=== PATIENT | female | born 1975 | race Caucasian/White ===

== ENCOUNTER → 2017-05-23 10:26 | Outpatient (CLI) | payer BC, SELFPAY ==
[2017-05-25 11:37] LABS: HPV Reflexed? NOT INDICATED
== END ==
PROVIDERS: Visit Provider Obstetrics & Gynecology
DX: Z12.4 Encounter for screening for malignant neoplasm of cervix (principal)
CPT/HCPCS: 88175; G0145

== ENCOUNTER → 2017-05-23 10:41 | Outpatient (CLI) | payer BC, SELFPAY ==
--- NOTE | 2017-05-23 10:47 | HPBI_ITS ---
MAMMOGRAPHY - BILATERAL SCREENING REASON FOR EXAM: Female, 42 years old. Routine annual screening examination. PERTINENT HISTORY: Aunt with breast cancer. TECHNIQUE: Digital bilateral breast marry (3D mammographic acquisition) in the CC and MLO projections. 2-D mediolateral oblique (MLO) and craniocaudad (CC) views of both breasts were obtained. CAD: Full Field Digital Mammography with Computer Added Detection was performed. COMPARISON: None. Baseline examination. FINDINGS: Breast Composition: The breasts are heterogeneously dense, which may obscure small masses. There are no dominant masses or suspicious calcifications. No other significant abnormalities are identified. HPBI/SCREENING MAMM (CAD), BILAT IMPRESSION: Negative screening mammogram. Yearly followup mammogram recommended. (A) ASSESSMENT CATEGORY: BIRADS Category 1: Negative. A letter regarding these results will be sent to the patient by the facility within 30 days. Approximately 10% of breast cancers are not detected by mammography. A normal mammogram should not delay biopsy of a clinically suspicious abnormality. [id number] Electronically Signed: Karlos Mora MD at 8:15 EDT Tel [phone], Service support ,
== END ==
PROVIDERS: Family Provider Family Medicine; PCP Family Medicine; Visit Provider Obstetrics & Gynecology
DX: Z01.419 Encounter for gynecological examination (general) (routine) without abnormal findings (principal); Z12.31 Encounter for screening mammogram for malignant neoplasm of breast
CPT/HCPCS: 77063; 77067

== ENCOUNTER → 2017-08-05 11:31 | Outpatient (CLI) | payer BC, SELFPAY ==
--- NOTE | 2017-08-05 11:39 | RAD_ITS ---
STUDY: X-RAY CHEST REASON FOR EXAM: Female, 42 years old. Chronic cough TECHNIQUE: PA and lateral views of the chest. COMPARISON: 02/25/2014 FINDINGS: The lungs are clear and expanded. There is no demonstrated pleural abnormality. Normal size heart. Normal mediastinum and yessica. Normal visualized pulmonary arteries. Normal visualized aortic arch and descending thoracic aorta. Normal visualized thoracic spine. Normal visualized ribs, clavicles, and shoulders. Cholecystectomy clips are identified. RAD/Chest PA and Lateral IMPRESSION: No airspace consolidation or pleural effusion. Stable exam. Electronically Signed: Se Hwang MD at 8:12 EDT , Service support ,
== END ==
PROVIDERS: Family Provider Family Medicine; PCP Family Medicine; Visit Provider Family Medicine
DX: R05 Cough (principal)
CPT/HCPCS: 71046

== ENCOUNTER → 2017-11-04 10:09 | Outpatient (CLI) | payer BC, SELFPAY ==
[2017-11-04 12:31] LABS: Anion Gap 10 (5-15); BUN 13 mg/dL (7-18); BUN/Creat Ratio 14.3 RATIO (10-20); Chloride 105 mmol/L (98-107); Cholesterol 165 mg/dL (200); Creatinine, Serum 0.91 mg/dL (0.55-1.02); EST Glomerular Filtration Rate 72 mL/min (>60); Est Glom Filt Rate - Afr Amer 87 mL/min (>60); Glucose 93 mg/dL (74-106); High Density Lipoprotein 44 mg/dL; Potassium 4.4 mmol/L (3.5-5.1); Sodium Level 136 mmol/L (136-145); Triglycerides 145 mg/dL; Very Low Density Lipoprotein 29 mg/dL (5-40)
[2017-11-04 12:38] LABS: Vitamin D,25 Hydroxy 18.4 ng/mL (29.95-100.01)
== END ==
PROVIDERS: Family Provider Family Medicine; PCP Family Medicine; Visit Provider Family Medicine
DX: E55.9 Vitamin D deficiency, unspecified (principal); I10 Essential (primary) hypertension
CPT/HCPCS: 36415; 80048; 80061; 82306

== ENCOUNTER → 2018-01-11 14:32 | Outpatient (CLI) | payer BC, SELFPAY ==
--- NOTE | 2018-01-11 14:36 | RAD_ITS ---
STUDY: X-RAY - RIGHT FOOT CLINICAL: Female, 42 years old. Kicked sweeper bruising area of the third and fourth metatarsal phalangeal joints. TECHNIQUE: 3 view(s) of the foot. COMPARISON: None. FINDINGS: There is a plantar calcaneal spur. Normal talus and tarsal bones. Normal visualized subtalar, talonavicular, calcaneocuboid, tarsal and tarsometatarsal articulations. Normal metatarsi. Normal metatarsophalangeal joint of the great toe. Normal tibial and fibular sesamoid bones. Normal interphalangeal joint of the great toe. Normal phalanges of the great toe. Normal second through fifth metatarsophalangeal joints. There is a nondisplaced oblique fracture through the shaft of the fourth proximal phalanx. Otherwise normal interphalangeal joints and phalanges of the lesser toes. The soft tissue structures are unremarkable. RAD/Foot min 3 Views IMPRESSION: 1. Nondisplaced fracture of the fourth proximal phalanx. 2. Plantar spur. Electronically Signed: Zachary Reid DO at 23:37 EST Tel [phone], Service support ,
== END ==
PROVIDERS: Family Provider Family Medicine; PCP Family Medicine; Referring Provider Family Medicine; Visit Provider Family Medicine
DX: M79.671 Pain in right foot (principal)
CPT/HCPCS: 73630

== ENCOUNTER → 2018-04-10 10:54 | Outpatient (CLI) | payer BC, SELFPAY ==
[2018-04-10 12:49] LABS: AST(SGOT) 15 U/L (15-37); Alanine Aminotransfer ALT/SGPT 16 U/L (13-56); Albumin, Serum 3.9 g/dL (3.2-5.0); Alkaline Phosphatase 71 U/L (45-117); Anion Gap 12 (5-15); BUN 13 mg/dL (7-18); BUN/Creat Ratio 14.9 RATIO (10-20); Calcium,Total 9.1 mg/dL (8.5-10.1); Chloride 103 mmol/L (98-107); Creatinine, Serum 0.87 mg/dL (0.55-1.02); EST Glomerular Filtration Rate 75 mL/min (>60); Est Glom Filt Rate - Afr Amer 91 mL/min (>60); Globulin 3.8 g/dL (2.2-4.2); Glucose 95 mg/dL (74-106); Potassium 4.8 mmol/L (3.5-5.1); Protein, Total 7.7 g/dL (6.4-8.2); Sodium Level 141 mmol/L (136-145)
== END ==
PROVIDERS: Family Provider Family Medicine; PCP Family Medicine; Visit Provider Family Medicine
DX: B35.1 Tinea unguium (principal)
CPT/HCPCS: 36415; 80053

== ENCOUNTER → 2018-08-21 | Outpatient (CLI) | payer BC, SELFPAY ==
[2018-08-21 17:37] LABS: Absolute Lymphocyte Count 2.84 X10^3/ul (0.83-4.51); Absolute Neutrophil Count 6.7 X10^3/uL (2.0-7.7); Basophil# 0.04 X10^3/uL; Basophil% 0.4 % (0-1); Eosinophils% 1.9 % (0-5); Hematocrit 39.6 % (37-47); Hemoglobin 12.8 g/dl (12.0-15.0); Lymphocyte # 2.84 X10^3/ul (4.0); Lymphocyte % 26.5 % (19-41); Mean Corp Hgb Conc 32.3 g/gl (32-36); Mean Corpuscular Volume 80.5 fL (81-99); Mean Platelet Vol. 10.8 fl (6.2-12.0); Monocyte# 0.89 X10^3/uL; Monocyte% 8.3 % (0-10); Neutrophil % 62.5 % (47-70); Platelet Count 438 K/mm3 (150-450); RBC Distribution Width CV 16.9 % (11.6-14.6); RBC Distribution Width SD 49.1 fl (35.1-43.9); Red Blood Count 4.92 M/mm3 (4.2-5.4); White Blood Count 10.7 K/mm3 (4.4-11.0)
[2018-08-21 17:58] LABS: POSITIVE COUNT NO; POSITIVE DIFFERENTIAL NO; POSITIVE MORPHOLOGY NO
[2018-08-21 18:15] LABS: Anion Gap 10 (5-15); BUN 10 mg/dL (7-18); BUN/Creat Ratio 11.6 RATIO (10-20); Calcium,Total 9.1 mg/dL (8.5-10.1); Chloride 104 mmol/L (98-107); Creatinine, Serum 0.86 mg/dL (0.55-1.02); EST Glomerular Filtration Rate 76 mL/min (>60); Est Glom Filt Rate - Afr Amer 92 mL/min (>60); Glucose 78 mg/dL (74-106); Potassium 4.4 mmol/L (3.5-5.1); Sodium Level 138 mmol/L (136-145)
== END | disposition home or self-care (01) ==
LOC: MFPLAB 15:49
PROVIDERS: Family Provider Family Medicine; PCP Family Medicine; Referring Provider Family Medicine; Visit Provider Family Medicine
DX: R07.9 Chest pain, unspecified (principal)
CPT/HCPCS: 36415; 80048; 84484; 85025

== ENCOUNTER → 2018-10-02 | Outpatient (CLI) | payer BC, SELFPAY ==
--- NOTE | 2018-10-02 17:33 | RAD_ITS ---
STUDY: X-RAY - ABDOMEN/PELVIS REASON FOR EXAM: Female, 43 years old. Right-sided abdominal pain. TECHNIQUE: Two AP supine views of the abdomen and pelvis. COMPARISON: None. FINDINGS: Normal visualized lung bases. There is an unremarkable bowel gas pattern. There is no demonstrated free abdominal air. The patient is status post cholecystectomy. Normal soft tissue structures. Normal visualized osseous structures. RAD/Abd Inc Decub and/or Erect IMPRESSION: Normal x-ray examination of the abdomen and pelvis. Electronically Signed: Karlos Mora, at 15:35 EDT , Service support ,
[2018-10-02 17:58] LABS: Hematocrit 38.9 % (37-47); Hemoglobin 12.3 g/dL (12.0-15.0); Mean Corp Hgb Conc 31.6 g/dL (32-36); Mean Corpuscular Hgb 26.4 pg (27.0-32.0); Mean Corpuscular Volume 83.5 fL (81-99); Mean Platelet Vol. 10.6 fl (6.2-12.0); Platelet Count 421 K/mm3 (150-450); RBC Distribution Width CV 16.1 % (11.6-14.6); RBC Distribution Width SD 48.8 fl (35.1-43.9); Red Blood Count 4.66 M/mm3 (4.2-5.4); White Blood Count 8.6 K/mm3 (4.4-11.0)
[2018-10-02 18:12] LABS: ALB/GLOB Ratio 0.9 RATIO (0.9-2.4); AST(SGOT) 25 U/L (15-37); Alanine Aminotransfer ALT/SGPT 21 U/L (13-56); Albumin, Serum 3.5 g/dL (3.2-5.0); Alkaline Phosphatase 84 U/L (45-117); Anion Gap 10 (5-15); BUN 9 mg/dL (7-18); BUN/Creat Ratio 9.7 RATIO (10-20); Calcium,Total 9.1 mg/dL (8.5-10.1); Chloride 107 mmol/L (98-107); Creatinine, Serum 0.92 mg/dL (0.55-1.02); EST Glomerular Filtration Rate 70 mL/min (>60); Est Glom Filt Rate - Afr Amer 85 mL/min (>60); Globulin 4.1 g/dL (2.2-4.2); Glucose 100 mg/dL (74-106); Potassium 4.2 mmol/L (3.5-5.1); Protein, Total 7.6 g/dL (6.4-8.2); Sodium Level 142 mmol/L (136-145)
== END | disposition home or self-care (01) ==
LOC: LAB 17:23 → RAD 17:24
PROVIDERS: Family Provider Family Medicine; PCP Family Medicine; Referring Provider Family Medicine; Visit Provider Family Medicine
DX: R10.9 Unspecified abdominal pain (principal)
CPT/HCPCS: 74019; 80053; 85027

== ENCOUNTER → 2018-10-04 | Outpatient (CLI) | payer BC, SELFPAY ==
--- NOTE | 2018-10-04 11:27 | CT_ITS ---
STUDY: CT ABDOMEN AND PELVIS WITHOUT CONTRAST REASON FOR EXAM: Female, 43 years old. Right lower quadrant and lower back pain since Tuesday. RADIATION DOSAGE (If Supplied By Facility): CTDIvol = ( 20.50 ) mGy, DLP = ( 2214.17 ) mGycm TECHNIQUE: Transaxial images were obtained from the dome of the diaphragm to the symphysis pubis without oral contrast, and without intravenous contrast. Sagittal and coronal images were reconstructed. Individualized dose optimization techniques were used for this CT. COMPARISON: Comparison is made with prior study dated September 24, 2014. FINDINGS: The visualized lung bases are unremarkable. The visualized portions of the heart are within normal limits. There is decreased attenuation of the liver consistent with steatosis. There are surgical clips in the gallbladder fossa consistent with a prior cholecystectomy. Normal spleen. Normal pancreas. Normal bilateral adrenal glands. Normal right kidney. Since prior study, this appearance of a 2.5 cm x 3.5 cm hypodense mass in the lateral aspect of the left kidney. This not a simple cyst as measured by Hounsfield units. Correlation with ultrasound is recommended. Normal visualized stomach. Normal small intestine. Normal colon. The appendix is visualized and appears normal. Normal abdominal aorta. Normal inferior vena cava. There is borderline retroperitoneal lymphadenopathy with enlarged nodes no greater than 10mm in the short axis diameter. Normal urinary bladder. Follicles are seen in both ovaries. Normal abdominal wall. Normal osseous structures. CT/Abdomen/Pelvis W IV Cont ONLY IMPRESSION: Fatty infiltration of the liver. 2.5 cm x 3.5 cm hypodense mass in the lateral aspect of the left kidney as described. Correlation with ultrasound is recommended to rule out a noncystic abnormality. Electronically Signed: Karlos Mora, at 13:21 EDT , Service support ,
== END | disposition home or self-care (01) ==
LOC: CT 11:09
PROVIDERS: Family Provider Family Medicine; PCP Family Medicine; Referring Provider Family Medicine; Visit Provider Family Medicine
DX: R10.9 Unspecified abdominal pain (principal)
CPT/HCPCS: 74177; Q9967

== ENCOUNTER → 2018-10-04 | Outpatient (CLI) | payer BC, SELFPAY ==
--- NOTE | 2018-10-04 16:20 | US_ITS ---
STUDY: RENAL ULTRASOUND - COMPLETE REASON FOR EXAM: Female, 43 years old. Left renal cyst. TECHNIQUE: Ultrasound evaluation of the kidneys was performed with real-time and static terry-scale imaging. COMPARISON: CT abdomen and pelvis 1140 hours. FINDINGS: RIGHT KIDNEY: Normal location of the right kidney, which is normal in size. The right kidney measures 10.4 x 4.9 x 5.1 cm. There is a normal cortex of the right kidney. The renal cortex measures 1.6 cm. There is no right renal mass or cyst. There are no right renal calculi. There is no right hydronephrosis. DISTAL RIGHT URETER: There is non-visualization of the distal right ureter. There is no demonstrated right ureterovesical junction calculus. There is a visualized right ureteral jet. LEFT KIDNEY: Normal location of the left kidney, which is normal in size. The left kidney measures 11.6 x 5.4 x 6.9 cm. There is a normal cortex of the left kidney. The renal cortex measures 1.3 cm. A 3.3 x 3.0 x 3.9 cm exophytic solid appearing mass is seen at the midpole, correlating to the hypodense lesion on CT. There are no left renal calculi. There is no left hydronephrosis. DISTAL LEFT URETER: There is non-visualization of the distal left ureter. There is no demonstrated left ureterovesical junction calculus. There is a visualized left ureteral jet. BLADDER: The distended urinary bladder has a volume of 326 ml. There is a 3 mm normal wall thickness of the distended urinary bladder. There is no demonstrated mass within the urinary bladder. There are no demonstrated bladder calculi. US/Kidney and Bladder IMPRESSION: 3.9 cm solid-appearing mass at the lateral midpole of the left kidney, correlating to the hypodense lesion seen on CT. This must be regarded with suspicion for malignancy until proven otherwise. No hydronephrosis. Electronically Signed: Brian Vaz MD at 19:25 EDT , Service support ,
== END | disposition home or self-care (01) ==
LOC: US 16:11
PROVIDERS: Family Provider Family Medicine; PCP Family Medicine; Referring Provider Family Medicine; Visit Provider Family Medicine
DX: N28.1 Cyst of kidney, acquired (principal)
CPT/HCPCS: 76770

== ENCOUNTER 2018-11-03 10:53 | Observation (INO) | payer BC, SELFPAY ==
[2018-10-23 10:42] VITALS: BP 134/84; PULSE 60; RESP 18; TEMP 37.3; O2SAT 97; BMI 39.9
--- NOTE | 2018-10-23 11:24 | RAD_ITS ---
STUDY: X-RAY CHEST REASON FOR EXAM: Female, 43 years old. Pre-op TECHNIQUE: PA and lateral views of the chest. COMPARISON: 08/05/2017 FINDINGS: The lungs are clear and expanded. There is no demonstrated pleural abnormality. Normal size heart. Normal mediastinum and yessica. Normal visualized pulmonary arteries. Normal visualized aortic arch and descending thoracic aorta. Normal visualized thoracic spine. Normal visualized ribs, clavicles, and shoulders. There is right upper quadrant surgical clips. RAD/Chest PA and Lateral IMPRESSION: Normal x-ray examination of the chest. Electronically Signed: Milana Zafar, at 12:28 EDT Tel , Service support ,
[2018-10-23 11:30] LABS: Hematocrit 36.6 % (37-47); Hemoglobin 11.5 g/dL (12.0-15.0); Mean Corp Hgb Conc 31.4 g/dL (32-36); Mean Corpuscular Hgb 26.1 pg (27.0-32.0); Mean Platelet Vol. 10.1 fl (6.2-12.0); Platelet Count 394 K/mm3 (150-450); RBC Distribution Width CV 16.4 % (11.6-14.6); RBC Distribution Width SD 49.6 fl (35.1-43.9); Red Blood Count 4.41 M/mm3 (4.2-5.4); White Blood Count 8.7 K/mm3 (4.4-11.0)
[2018-10-23 12:00] LABS: Anion Gap 6 (5-15); BUN 12 mg/dL (7-18); BUN/Creat Ratio 13.3 RATIO (10-20); Calcium,Total 8.2 mg/dL (8.5-10.1); Chloride 109 mmol/L (98-107); EST Glomerular Filtration Rate 72 mL/min (>60); Est Glom Filt Rate - Afr Amer 87 mL/min (>60); Estimated Creatinine Clearance 68.88 ml/min; Glucose 110 mg/dL (74-106); Potassium 4.1 mmol/L (3.5-5.1); Sodium Level 140 mmol/L (136-145)
[2018-11-03] VITALS (12 sets, daily range): BP systolic 112–157; BP diastolic 57–90; PULSE 54–78; RESP 14–16; TEMP 36.1–37.1; O2SAT 91–98; BMI 39.9
--- NOTE | 2018-11-03 | IMM_PTH ---
PATIENT: LAMAR KANG LOC: MS3 U#:[id number] AGE/SX: 43/F ROOM: MS313 RE11/03/[address]: Dr. Harshal Fofana MD : 1975 BED: 1 DIS: 11/04/2018 SPEC #: [id number] RECD: 11/08/18 12:33 STATUS: SOUBharath REQ #: [id number] KRISTY: 11/03/18 00:[address]: Harshal Fofana DEPT: IMMUNOHISTOCHEMISTRY RECD BY: Vanessa Garland ENTERED: 11/08/18 12:45 SP TYPE: IMMUNO OTHR DR: Dr. Maurilio Meyers MD Tissues: Kidney, NOS Procedures: RCC (add) CD10 (add) CK19 (add) CK7 (add) CK8 (add) PERCY (add) Vimentin (add) 34BE12 (add) FACTOR VIII (add) Pankeratin (initial) PHYSICIAN & [address] [address] SPECIMEN INFORMATION: Tissue Source: Left renal mass Clinical Info: Neoplasm of left kidney Specimen Number: [id number] #2 CPT code: 44711, 19292 x9 METHODOLOGY: Deparaffinized sections of prefer/formalin-fixed tissue or PAP/DQ stained slides are incubated with monoclonal/polyclonal antibodies/oligonucleotide probes. Localization is made via biotin free immunoperoxidase method. Appropriate controls are performed and reacted as expected. Results on target cell population are indicated in the following table: RESULTS: ANTIBODY / CLONE RESULT Block 2 AE1-3 (AE1/AE3/PCK26) positive CK7 (OV-TL12/30) positive CK8 (41otzpE72) positive CD10 (56C6) positive, focal 34BE12 (34BE12) positive, focal Vimentin (V9) positive CK19 (A53-B/A2.26) positive PERCY (E29) negative PAX8 (MQR-50) positive RCC (PN-15) positive These tests were developed and their performance characteristics determined by [facility]. They may not have been cleared or approved by the U.S. Food and Drug Administration. The FDA has determined that such clearance or approval is not necessary. INTERPRETATION: Left kidney, partial nephrectomy: Papillary renal cell carcinoma. Case has been reviewed in consultation with Dr. Diane who concurs with the above diagnosis. IDC:ABBI AM:nelli 11/09/18
[2018-11-03 09:14] LABS: Internal QC Validated? YES +Cl - CLEAR BKGD; Pregnancy, Urine Negative Negative
[2018-11-03] MEDS: Lactated Ringers 1,000 ML 60 ML IV (09:44)
[2018-11-03] MEDS: Lactated Ringers 1,000 ML 100 ML IV (09:55)
--- NOTE | 2018-11-03 10:51 | DCINST_ITS ---
Discharge Diet: Light diet - advance as tolerated Discharge Activity: May Not Drive, May not drive while taking narcotic pain medications., May Shower Call your doctor if your incision/area has: Continuous Slow Oozing, Sudden Increased Bleeding, Increased Pain/ Swelling, Increased Redness, Foul Smelling Discharge, Swelling at the incision site Call your doctor if you observe: Fever of 101 or Higher, Inability to urinate, Inability to have a bowel movement, Uncontrolled pain Suture Line Care: Avoid Pulling/Pushing, Avoid Pinching/Bending Allergies/Adverse Reactions: Allergies No Known Allergies Allergy (Verified 10/23/18 10:36) Medications to take at Discharge Buspirone HCl 7.5 mg PO BID 10/23/18 Cholecalciferol (Vitamin D3) [Vitamin D3] 2,000 unit PO DAILY 10/23/18 Fluoxetine HCl 60 mg PO DAILY 10/23/18 Metoprolol Tartrate [Lopressor (Beta Faheem)] 12.5 mg PO BID 10/23/18 Omeprazole 40 mg PO DAILY 10/23/18 Docusate Sodium [Colace] 100 mg PO BID #20 cap 11/03/18 Oxycodone HCl/Acetaminophen [Percocet 5/325] 1 tab PO Q4H PRN PRN 5 Days #20 tab 11/03/18 The following prescriptions were given: Docusate Sodium [Colace] 100 mg PO BID #20 cap Prescription Printed Oxycodone HCl/Acetaminophen [Percocet 5/325] 1 tab PO Q4H PRN PRN 5 Days #20 tab PRN Reason: Pain Prescription Printed Primary Care Physician: Maurilio Meyers MD [Primary Care Provider] - Test Results: Test results from this visit will be discussed in further detail at your follow- up appointment, if applicable. Please Follow Up With: Harshal Fofana MD When: in 2 weeks, please call to make an appointment. Proposed Discharge Date: 11/05/18
[2018-11-03] MEDS: Cefazolin 2 GM in 0.9% Normal Saline 100 ML IV (10:57)
--- NOTE | 2018-11-03 11:00 | MASS_PTH ---
PATIENT: LAMAR KANG LOC: MS3 U#:[id number] AGE/SX: 43/F ROOM: MS313 RE11/03/[address]: Dr. Harshal Fofana MD : 1975 BED: 1 DIS: 11/04/2018 SPEC #: [id number] RECD: 11/03/18 16:18 STATUS: MAXIME SMITH #: [id number] KRISTY: 11/03/18 11:[address]: Harshal Fofana DEPT: SURGICAL PATHOLOGY RECD BY: Bret Kimble ENTERED: 11/07/18 08:37 SP TYPE: Mass OTHR DR: Dr. Maurilio Meyers MD Tissues: Kidney, NOS Procedures: Surgery Specimen Level V HEADER OPERATION: Laparoscopic robotic left partial nephrectomy PRE-OP DIAGNOSIS: Neoplasm of left kidney TISSUE SUBMITTED: Left renal mass MICROSCOPIC DIAGNOSIS Left renal mass, partial nephrectomy: Papillary carcinoma. See cancer checklist below. AM:nelli 11/08/18 COMMENT KIDNEY CANCER SUMMARY: Procedure - partial nephrectomy Specimen laterality - left kidney Tumor size - 4 x 3 x 3 cm Tumor focality - unifocal Macroscopic extent of tumor - tumor confined to kidney Histologic type - papillary renal cell carcinoma Sarcomatoid features - not identified Tumor necrosis - not identified Histologic grade (Sun nuclear grade) - G2 (nuclei slightly irregular approximately 15 micrometers, nuclei are evident.) Microscopic tumor extension - tumor limited to kidney Margins - uninvolved by invasive carcinoma Lymph-Vascular invasion - not identified Pathologic findings in nonneoplastic kidney - rare nephrosclerosis Regional lymph nodes - not submitted PATHOLOGIC STAGE: pT1a Nx Mx The above summary is in compliance with [employer] (CAP) Cancer Protocols Checklist and [place] [employer] Committee on Cancer (AJCC), Staging Manual, 8th Ed. Immunohistochemistry ([id number]) supports the above diagnosis. Case has been reviewed in consultation with Dr. Diane who concurs with the above diagnosis. IDC:SJ MICROSCOPIC DESCRIPTION Slides are reviewed. GROSS DESCRIPTION Received in fixative is one container labeled with the patient's name and designated left renal mass. The specimen consists of a partial nephrectomy specimen consisting of renal tissue containing a mass and perirenal adipose tissue weighing 50 gm. The entire specimen measures 7 x 5.5 x 4 cm. The perirenal adipose tissue measures up to 2 cm in thickness. The renal tissue including mass measures 5?x 4 x 3 cm. The specimen is inked as follows: renal parenchymal margin - blue, rest of the specimen - black. Most of the renal parenchymal tissue appears to consist of a hemorrhagic tumor mass measuring 4 x 3 x 3 cm. A thin rim of normal appearing renal tissue is noted. No invasion into the adjacent perirenal adipose tissue is noted. Sections of the tumor mass reveal hemorrhagic cut surfaces with an area of softening. No obvious area of necrosis is noted. Home Health Cna sections are submitted in eight cassettes as follows: 1-7 - tumor with surrounding normal appearing renal tissue, 8 - perirenal adipose tissue. / SJ:rg 11/07/18 TC:0 CPT: 57139
[2018-11-03] MEDS: Bupivacaine Mpf 0.5% 30 ML VIAL (13:30)
--- NOTE | 2018-11-03 13:55 | PCM.OPRPT ---
Report of Operation Date of Procedure: 11/03/18 Pre-Operative Diagnosis: Left renal mass Post-Operative Diagnosis: The same Surgery/Procedure Performed:: Laparoscopic robotic assisted left partial nephrectomy, intraoperative ultrasound of the left kidney Description of Surgical Findings:: 43-year-old female who presented with a 3 cm mass in her left kidney suspicious for malignancy or possible tumor we discussed the possible etiologies was discussed multiple options of management including percutaneous, open surgery, nephrectomy, partial nephrectomy, with discussed possible etiologies and diagnoses. After full discussion with the patient I recommended we proceed with a partial nephrectomy. She understands the risk of the surgery include bleeding and infection failure to remove the entire tumor, conversion open conversion to total nephrectomy. 43-year-old female was taken back to the operating room after smooth induction of general anesthesia she was placed supine on the table Corbin catheter was placed. We then placed her in full flank position with the left side up axillary roll below we flexed the table make sure we have secured to the table with tape lower legs were padded and draped we made sure that her shoulder was supported with a shoulder wilson the arm was at her side table flexed. Over the kidney break. We then prepped and draped the abdomen in sterile fashion first marked out my placement from my trochars for the robotic approach to the kidney I then used a Veress needle to insufflate the peritoneal cavity with CO2 gas once this was obtained then I placed my camera trocar and right arm trocar and left arm left trocar and left assistant community director trocar and then an air seal port. After we docked the robot we started dissection we incised the white line of Toldt reflected the the spleen and the colon off the kidney she had a significant amount of fatty tissue that was in the belly she has a BMI of 40 after reflecting the colon out the kidney I then was able to identify the gonadal vein went below this and then was able to lift the kidney off the attachments to the aorta got below the kidney with the fourth arm pulled up and then dissected along the bottom of the kidney until I reached the hilum I then identified the renal vein dissected the renal vein very carefully all the way around the renal vein and could not see the artery I then went in superior to the renal vein and eventually I was able to identify the renal artery superior to the renal vein then once the renal artery was dissected enough to place a clamp on it I then went up to the kidney we then mobilized the kidney in order to reach the tumor which was a tumor that was anterior but it is headed posterior. After mobilizing the kidney I used a laparoscopic ultrasound to perform ultrasonography in the kidney identified the tumor edges identified the tumor itself I then opened up the Gerota's fascia and opened up the fat down to the kidney I then marked out my edges of the resection for the tumor all the way around the tumor. We then elevated the kidney up identified the renal artery clamp the artery with a vascular clamp bulldog and then started resection of the tumor itself resected down starting with a wide dissection all the way around the tumor down went deep down in below the tumor then was then identified the base of the tumor and then carefully resected the tumor off the kidney from the base once the tumor was completely resected and was placed in Endo Catch bag we then ran the resection site with 2V lock stitches to secure the blood vessels we then reapproximated the edges with a running 0 Vicryl stitch using a sliding technique and the clips to pull the edges together and apply a lot of pressure. We then placed FloSeal on the resection site we unclamped the artery and there was absolutely no bleeding from the resection site we then Doppler the kidney and Doppler the artery use vascular Doppler to check the kidney. Kidney had good vascular supply good blood flow. We then extracted the tumor through our camera port we closed our camera port directly into the interrupted stitches using [id number] suture we then closed our air seal port with a Blaise Pavon stitch we then extracted all the ports we closed the skin with subcuticular stitches tumor was then handed off as a specimen. We look back in the abdomen after extracting the tumor and there is no bleeding from the resection site patient was clinically stable and she is currently undergoing reversal of her anesthesia all the sponges and needles were accounted for. Type of Anesthesia:: General Specimen's removed: tumor Estimated Blood Loss (mL): 50cc - Admit VTE Documentation VTE Present on Admission: No VTE Mechan Device Prophylaxis: SCD's
[2018-11-03] MEDS: 0.9% Normal Saline 1,000 ML 125 ML IV ×2 (15:47→23:56)
[2018-11-03] MEDS: Ketorolac 15 MG/ML Vial IV ×3 (16:00→23:55)
[2018-11-03] MEDS: Acetaminophen 500 MG Tablet PO (17:44)
[2018-11-03] MEDS: 0.9% NaCl Peripheral Flush Adult/Peds IV (19:03)
[2018-11-03] MEDS: busPIRone 5 MG Tablet 7.5 MG PO (22:19)
[2018-11-03] MEDS: Metoprolol Tartrate 25 MG Tablet 12.5 MG PO (22:19)
[2018-11-03] MEDS: Docusate Sodium 100 MG Capsule PO (22:19)
[2018-11-03] MEDS: HYDROmorphone 1 MG/ML Syringe IV (22:20)
[2018-11-04 02:00] VITALS: BP 160/82; PULSE 55; RESP 16; TEMP 36.7; O2SAT 98
[2018-11-04] MEDS: Ketorolac 15 MG/ML Vial IV (05:34)
[2018-11-04] MEDS: Enoxaparin 40 MG/0.4 ML Syringe SC (05:34)
[2018-11-04] MEDS: HYDROmorphone 1 MG/ML Syringe IV (05:44)
[2018-11-04 07:06] VITALS: O2SAT 95
[2018-11-04] MEDS: 0.9% Normal Saline 1,000 ML 125 ML IV (07:18)
[2018-11-04 07:31] LABS: Hematocrit 33.1 % (37-47); Hemoglobin 10.2 g/dL (12.0-15.0); Mean Corp Hgb Conc 30.8 g/dL (32-36); Mean Corpuscular Hgb 25.6 pg (27.0-32.0); Mean Corpuscular Volume 83.2 fL (81-99); Mean Platelet Vol. 10.7 fl (6.2-12.0); Platelet Count 377 K/mm3 (150-450); RBC Distribution Width CV 16.4 % (11.6-14.6); RBC Distribution Width SD 49.6 fl (35.1-43.9); Red Blood Count 3.98 M/mm3 (4.2-5.4); White Blood Count 19.4 K/mm3 (4.4-11.0)
[2018-11-04 07:42] LABS: Anion Gap 8 (5-15); BUN 10 mg/dL (7-18); BUN/Creat Ratio 10.6 RATIO (10-20); Calcium,Total 7.8 mg/dL (8.5-10.1); Chloride 104 mmol/L (98-107); Creatinine, Serum 0.94 mg/dL (0.55-1.02); EST Glomerular Filtration Rate 68 mL/min (>60); Est Glom Filt Rate - Afr Amer 82 mL/min (>60); Estimated Creatinine Clearance 65.95 ml/min; Glucose 117 mg/dL (74-106); Potassium 4.3 mmol/L (3.5-5.1); Sodium Level 135 mmol/L (136-145)
[2018-11-04 08:00] VITALS: BP 144/86; PULSE 53; RESP 18; TEMP 36.7; O2SAT 95
--- NOTE | 2018-11-04 08:33 | PCM.PN.BLA ---
Progress Note 43-year-old female status post left partial nephrectomy doing well this morning, NEETA Corbin DC fluids, advance diet to regular, pain is under control she is doing well ambulate if this afternoon she is tolerating regular food pain is under control ambulating she can go home with [employer] for pain and stool softeners follow-up in the office about 2 weeks.
--- NOTE | 2018-11-04 08:40 | NURSING ---
Dr. Fofana in to see pt- advanced diet to regular. Shaquille removed at this time. Pt requesting to be d/c'ed home today. states this is ok but that she must urinate, ambulate and tolerate regular diet first.
[2018-11-04] MEDS: Pantoprazole Sodium 20 MG Tablet PO (08:54)
[2018-11-04] MEDS: FLUoxetine 20 MG Capsule 60 MG PO (08:54)
[2018-11-04] MEDS: Docusate Sodium 100 MG Capsule PO (08:55)
[2018-11-04] MEDS: Magnesium Hydroxide 30 ML UDC 15 ML PO (08:55)
[2018-11-04] MEDS: busPIRone 5 MG Tablet 7.5 MG PO (08:55)
== END 2018-11-04 12:50 | disposition home or self-care (01) ==
LOC: MS3 15:53 → SDC 15:53
PROVIDERS: Anesthesiology; Admitting Provider Urology; Family Provider Family Medicine; PCP Family Medicine; Referring Provider Urology; Visit Provider Urology
PROC: (CPT 50543; principal; 2018-11-03 10:40)
DX: C64.2 Malignant neoplasm of left kidney, except renal pelvis (principal); I10 Essential (primary) hypertension; G47.30 Sleep apnea, unspecified; F17.200 Nicotine dependence, unspecified, uncomplicated; K21.9 Gastro-esophageal reflux disease without esophagitis; F41.9 Anxiety disorder, unspecified; F32.9 Major depressive disorder, single episode, unspecified; Z79.899 Other long term (current) drug therapy
CPT/HCPCS: 00862; 50543; S2900; 36415; 71046; 80048; 81025; 85027; 86850; 86900; 86901; 86920; 86922; 88307; 88341; 88342; 96361; 96372; 96374; 96375; 96376; 99218; J7030; J7120; A4216; G0378; G0379; J2405

== ENCOUNTER → 2019-05-12 06:53 | Outpatient (CLI) | payer BC, SELFPAY ==
[2018-11-03 15:40] VITALS: BMI 39.9
--- NOTE | 2019-05-12 07:05 | RAD_ITS ---
STUDY: X-RAY CHEST REASON FOR EXAM: Female, 44 years old. hx malignant neoplasm left kidney TECHNIQUE: PA and lateral views of the chest. COMPARISON: 10/23/2018. FINDINGS: The lungs are clear and expanded. There is no demonstrated pleural abnormality. Normal size heart. Normal mediastinum and yessica. Normal visualized pulmonary arteries. Normal visualized aortic arch and descending thoracic aorta. Normal visualized thoracic spine. There is degenerative osteoarthritis of the bilateral shoulders. There is no demonstrated abnormality of the visualized soft tissue structures of the upper abdomen. RAD/Chest PA and Lateral IMPRESSION: No acute cardiopulmonary disease. Electronically Signed: Jennifer Castellanos MD at 3:12 EDT , Service support ,
[2019-05-12 08:20] LABS: ALB/GLOB Ratio 0.8 RATIO (0.9-2.4); AST(SGOT) 18 U/L (15-37); Alanine Aminotransfer ALT/SGPT 17 U/L (13-56); Albumin, Serum 3.5 g/dL (3.2-5.0); Alkaline Phosphatase 88 U/L (45-117); Anion Gap 5 (5-15); BUN 14 mg/dL (7-18); Calcium,Total 8.5 mg/dL (8.5-10.1); Chloride 104 mmol/L (98-107); Creatinine, Serum 0.87 mg/dL (0.55-1.02); EST Glomerular Filtration Rate 75 mL/min (>60); Est Glom Filt Rate - Afr Amer 90 mL/min (>60); Globulin 4.4 g/dL (2.2-4.2); Glucose 106 mg/dL (74-106); Potassium 3.8 mmol/L (3.5-5.1); Protein, Total 7.9 g/dL (6.4-8.2); Sodium Level 136 mmol/L (136-145)
== END ==
PROVIDERS: PCP Family Medicine; Referring Provider Urology; Visit Provider Urology
DX: C64.2 Malignant neoplasm of left kidney, except renal pelvis (principal)
CPT/HCPCS: 36415; 71046; 80053

== ENCOUNTER → 2019-10-04 17:35 | Outpatient (CLI) | payer BC, SELFPAY ==
[2018-11-03 15:40] VITALS: BMI 39.9
--- NOTE | 2019-10-04 17:41 | CT_ITS ---
STUDY: CT ABDOMEN AND PELVIS WITHOUT CONTRAST REASON FOR EXAM: Female, 44 years old. KIDNEY CANCER F/U, LT KIDNEY CA WITH PARTIAL NEPHRECTOMY, HTN, ALEJANDRA RADIATION DOSAGE (If Supplied By Facility): CTDIvol = ( 20.48 ) mGy, DLP = ( 2111.93 ) mGycm TECHNIQUE: Transaxial images were obtained from the dome of the diaphragm to the symphysis pubis without oral contrast, and without intravenous contrast. Sagittal and coronal images were reconstructed. Individualized dose optimization techniques were used for this CT. COMPARISON: Previous study of 10/04/2018 FINDINGS: The visualized lung bases are unremarkable. The visualized portions of the heart are within normal limits. Normal liver. There are surgical clips in the gallbladder fossa consistent with a prior cholecystectomy. Normal spleen. Normal pancreas. Normal bilateral adrenal glands. There is a wedge-shaped defect which may represent cortical scar of the inferior pole of the right kidney. Status post partial left nephrectomy changes are noted. There is no evidence of new or recurrent malignancy. Normal visualized stomach. Normal small intestine. Normal colon. The appendix is visualized and appears normal. Normal abdominal aorta. Normal inferior vena cava. Normal retroperitoneum. Normal urinary bladder. The uterus appears normal. There is a 4.1 x 3.2 cm low-attenuation right adnexal focus consistent with ovarian cyst. There is a lateral left abdominal wall hernia containing peritoneal fat. This is new in the interval. Normal osseous structures. CT/Abdomen/Pelvis WITH Contrast IMPRESSION: 1. Wedge-shaped defect which may represent cortical scar of the inferior pole of the right kidney. 2. Status post partial left nephrectomy changes are noted. There is no evidence of new or recurrent malignancy. 3. Status post cholecystectomy. 4. 4.1 x 3.2 cm low-attenuation right adnexal focus consistent with ovarian cyst. This is new in the interval. 5. There is a lateral left abdominal wall hernia containing peritoneal fat, which is also new in the interval. 6. There is no evidence of free intra-abdominal or intrapelvic air, fluid, or inflammatory process. Electronically Signed: Mike Adames MD at 19:52 EDT , Service support ,
[2019-10-04 17:55] LABS: CREATININE FINGERSTICK < 0.6 mg/dL (0.55-1.02); EGFR FINGERSTICK > 60.0000 mL/min (>60)
== END ==
PROVIDERS: PCP Family Medicine; Referring Provider Urology; Visit Provider Urology
DX: C64.2 Malignant neoplasm of left kidney, except renal pelvis (principal)
CPT/HCPCS: 74177; Q9967

== ENCOUNTER → 2019-10-11 10:19 | Outpatient (CLI) | payer BC, SELFPAY ==
[2018-11-03 15:40] VITALS: BMI 39.9
--- NOTE | 2019-10-11 10:27 | RAD_ITS ---
STUDY: X-RAY - CERVICAL SPINE REASON FOR EXAM: Female, 44 years old. Cervicalgia, left arm pain TECHNIQUE: 5 view(s) of the cervical spine were obtained including oblique views. COMPARISON: None FINDINGS: Normal anterior atlantoaxial articulation. Normal odontoid process. There is straightening of the normal cervical lordosis. There is multi-level endplate spondylosis. There is multi-level degenerative disc disease with multilevel disc space narrowing. Normal visualized intervertebral neuroforamina. The soft tissue structures are unremarkable. RAD/Cerv Spine 4 or 5 Views IMPRESSION: Multilevel spondylosis and disc space narrowing. Straightening of the normal cervical lordosis. Electronically Signed: Karlos Mora, at 12:58 EDT , Service support ,
== END ==
PROVIDERS: PCP Family Medicine; Referring Provider Family Medicine; Visit Provider Family Medicine
DX: M54.2 Cervicalgia (principal)
CPT/HCPCS: 72050

== ENCOUNTER → 2019-11-08 17:30 | Outpatient (CLI) | payer BC, SELFPAY ==
[2018-11-03 15:40] VITALS: BMI 39.9
--- NOTE | 2019-11-08 17:03 | BI_ITS ---
MAMMOGRAPHY - BILATERAL SCREENING REASON FOR EXAM: Female, 44 years old. Routine annual screening examination. PERTINENT HISTORY: Aunt with breast cancer. TECHNIQUE: Digital bilateral breast chiki (3D mammographic acquisition) in the CC and MLO projections. 2-D mediolateral oblique (MLO) and craniocaudad (CC) views of both breasts were obtained. CAD: Full Field Digital Mammography with Computer Added Detection was performed. COMPARISON: Comparison is made with prior examination dated 05/23/2017. FINDINGS: Breast Composition: The breasts are heterogeneously dense, which may obscure small masses. There are no dominant masses or suspicious calcifications. Stable small benign appearing bilateral axillary lymph nodes. No other significant abnormalities are identified. There has been no significant change since the prior study. BI/SCREEN MAMM (CAD) W/CHIKI BILAT IMPRESSION: Stable bilateral screening mammogram. Yearly follow-up mammogram recommended. (A) ASSESSMENT CATEGORY: BIRADS Category 2: Benign. A letter regarding these results will be sent to the patient by the facility within 30 days. Approximately 10% of breast cancers are not detected by mammography. A normal mammogram should not delay biopsy of a clinically suspicious abnormality. [id number] Electronically Signed: Karlos Mora, at 8:31 EDT , Service support ,
== END ==
PROVIDERS: PCP Family Medicine; Referring Provider Obstetrics & Gynecology; Visit Provider Obstetrics & Gynecology
DX: Z12.31 Encounter for screening mammogram for malignant neoplasm of breast (principal)
CPT/HCPCS: 77063; 77067